=== PATIENT | male | born 1940 | race Caucasian/White ===

== ENCOUNTER → 2019-05-29 09:58 | Outpatient (CLI) | payer MEDICARE, SELFPAY ==
[2019-05-29 10:35] LABS: Hematocrit 42.2 % (41-53); Hemoglobin 14.5 g/dL (13.5-17.5); Mean Corpuscular HGB Conc 34.4 % (30-36); Mean Corpuscular Hemoglobin 35.8 PG (26-34); Mean Corpuscular Volume 103.9 fL (80-100); Platelet Count 173 X10^3/uL (150-400); Red Blood Cell Count 4.06 X10^6/uL (4.5-5.9); Red Cell Distribution Width 13.8 % (11.6-14.8); White Blood Cell Count 4.5 X10^3/uL (4.5-11.0)
[2019-05-29 11:03] LABS: BUN Creatinine Ratio 21.4 (6-22); Blood Urea Nitrogen 15 mg/dL (9-20); Calcium 9.7 mg/dL (8.4-10.2); Carbon Dioxide 31 mmol/L (22-32); Chloride 101 mmol/L (98-107); Estimated Glomerular Filt Rate > 60.0 mL/min (>60); Glucose 97 mg/dL (80-110); HEMOLYSIS < 15 (0-50); Potassium 4.7 mmol/L (3.4-5.1); Sodium 137 mmol/L (137-145)
== END ==
DX: E85.4 Organ-limited amyloidosis (principal); I43 Cardiomyopathy in diseases classified elsewhere
CPT/HCPCS: 36415; 80048; 85027

== ENCOUNTER → 2020-05-24 09:16 | Outpatient (CLI) | payer MEDICARE, SELFPAY ==
[2020-05-24 10:20] LABS: Add Manual Diff / Slide Review NO; Basophils Absolute Auto 100 /uL (0-100); Basophils Percent Auto 2.8 % (0-2); Eosinophils Absolute Auto 500 /uL (0-450); Eosinophils Percent Auto 10.2 % (2-4); Hematocrit 42.7 % (41-53); Hemoglobin 14.7 g/dL (13.5-17.5); Lymphocytes Absolute Auto 1100 /uL (1100-4500); Lymphocytes Percent Auto 20.5 % (25-40); Mean Corpuscular HGB Conc 34.5 % (30-36); Mean Corpuscular Hemoglobin 35.9 PG (26-34); Mean Corpuscular Volume 104.3 fL (80-100); Monocytes Absolute Auto 700 /uL (0-900); Monocytes Percent Auto 13.2 % (3-14); Neutrophils Absolute Auto 2700 /uL (1500-7000); Neutrophils Percent Auto 53.3 % (50-75); Platelet Count 185 X10^3/uL (150-400); Red Blood Cell Count 4.09 X10^6/uL (4.5-5.9); Red Cell Distribution Width 13.5 % (11.6-14.8); White Blood Cell Count 5.1 X10^3/uL (4.5-11.0)
[2020-05-24 10:36] LABS: HEMOLYSIS < 15 (0-50); Iron 126 ug/dL (49-181)
[2020-05-24 10:47] LABS: Percent Iron Saturation 49 % (20-50); Total Iron Binding Capacity 256 ug/dL (261-462); Transferrin 172 mg/dL (206-381)
[2020-05-24 14:07] LABS: Ferritin 160 ng/mL (18-464)
== END ==
PROVIDERS: Referring Provider Internal Medicine; Visit Provider Internal Medicine
DX: E83.119 Hemochromatosis, unspecified (principal)
CPT/HCPCS: 36415; 82728; 83540; 83550; 85025

== ENCOUNTER 2020-05-29 16:03 | Emergency (ER) | payer MEDICARE, SELFPAY ==
[2020-05-29 16:15] VITALS: BP 152/73; PULSE 72; RESP 18; TEMP 36.9; O2SAT 97; BMI 22.2
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
[2020-05-29 16:38] VITALS: PULSE 70; O2SAT 98
[2020-05-29 16:51] LABS: Add Manual Diff / Slide Review NO; Basophils Absolute Auto 200 /uL (0-100); Basophils Percent Auto 1.3 % (0-2); Eosinophils Absolute Auto 200 /uL (0-450); Eosinophils Percent Auto 1.5 % (2-4); Hematocrit 42.7 % (41-53); Hemoglobin 14.5 g/dL (13.5-17.5); Lymphocytes Absolute Auto 1000 /uL (1100-4500); Lymphocytes Percent Auto 7.9 % (25-40); Mean Corpuscular Volume 102.9 fL (80-100); Monocytes Absolute Auto 2000 /uL (0-900); Monocytes Percent Auto 15.7 % (3-14); Neutrophils Absolute Auto 9200 /uL (1500-7000); Neutrophils Percent Auto 73.6 % (50-75); Platelet Count 170 X10^3/uL (150-400); Red Blood Cell Count 4.15 X10^6/uL (4.5-5.9); Red Cell Distribution Width 13.2 % (11.6-14.8); White Blood Cell Count 12.5 X10^3/uL (4.5-11.0)
[2020-05-29 16:56] LABS: INR 1.4 (0.9-1.3); Prothrombin Time 15.9 SECONDS (10.1-12.7)
--- NOTE | 2020-05-29 16:56 | PC.NURSE ---
Reports pain in right hip front to back. Also has tenderness in RLQ. Reports history of hernia repair in that area.
[2020-05-29 17:03] VITALS: PULSE 70; O2SAT 97
[2020-05-29 17:07] LABS: Alanine Aminotransferase 19 IU/L (<50); Albumin 4.3 g/dL (3.5-5.0); Albumin Globulin Ratio 1.2 (1.0-2.8); Alkaline Phosphatase 90 U/L (38-126); Aspartate Aminotransferase 31 IU/L (17-59); BUN Creatinine Ratio 21.2 (6-22); Bilirubin Total 0.9 mg/dL (0.2-1.3); Blood Urea Nitrogen 14 mg/dL (9-20); Calcium 9.3 mg/dL (8.4-10.2); Carbon Dioxide 29 mmol/L (22-32); Chloride 101 mmol/L (98-107); Creatine Kinase 31 U/L (55-170); Estimated Glomerular Filt Rate > 60.0 mL/min (>60); Globulin 3.6 g/dL (1.7-4.1); Glucose 107 mg/dL (80-110); HEMOLYSIS < 15 (0-50); Lipase 110 U/L (23-300); Potassium 4.1 mmol/L (3.4-5.1); Sodium 135 mmol/L (137-145); Total Protein 7.9 g/dL (6.3-8.2)
[2020-05-29 17:19] LABS: Troponin I 0.046 ng/mL (0.01-0.034)
[2020-05-29 17:20] LABS: Ethanol (ETOH) < 10 mg/dL
[2020-05-29 17:23] VITALS: BP 142/66; PULSE 68; RESP 20; O2SAT 99
[2020-05-29 17:30] VITALS: BP 146/69; PULSE 76; RESP 22; O2SAT 99
[2020-05-29 18:00] VITALS: BP 139/65; PULSE 68; RESP 21; O2SAT 99
== END 2020-05-29 18:17 | disposition home or self-care (01) ==
PROVIDERS: Emergency Provider Emergency Medicine
DX: R10.31 Right lower quadrant pain (principal); S09.90XA Unspecified injury of head, initial encounter; Z79.01 Long term (current) use of anticoagulants; V89.2XXA Person injured in unspecified motor-vehicle accident, traffic, initial encounter
CPT/HCPCS: 36415; 70450; 71260; 72125; 74177; 80053; 80320; 82550; 83690; 84484; 85025; 85610; 86850; 86900; 86901; 93005; 93010; 99285; Q9967

== ENCOUNTER → 2020-06-10 11:42 | Outpatient (CLI) | payer MEDICARE, SELFPAY ==
[2020-06-10 12:16] LABS: 585 Gram Check PASS; Dizziness NO; Postdiastolic BP 72; Postsystolic BP 118; Prediastolic 75; Presystolic 146; Pulse 61; Site of phlebotomy LAC; Swelling NO; Therapeutic Phleb Comment NO COMMENT; Zero Check Sebra Scale PASS
== END ==
PROVIDERS: Referring Provider Internal Medicine; Visit Provider Internal Medicine
DX: E83.119 Hemochromatosis, unspecified (principal)
CPT/HCPCS: 99195

== ENCOUNTER → 2020-09-01 09:39 | Outpatient (CLI) | payer MEDICARE, SELFPAY ==
[2020-09-01 10:57] LABS: Add Manual Diff / Slide Review NO; Basophils Absolute Auto 200 /uL (0-100); Basophils Percent Auto 3.6 % (0-2); Eosinophils Absolute Auto 400 /uL (0-450); Eosinophils Percent Auto 6.8 % (2-4); Hematocrit 45.3 % (41-53); Hemoglobin 15.4 g/dL (13.5-17.5); Lymphocytes Absolute Auto 1300 /uL (1100-4500); Lymphocytes Percent Auto 21.3 % (25-40); Mean Corpuscular Hemoglobin 35.2 PG (26-34); Mean Corpuscular Volume 103.7 fL (80-100); Monocytes Absolute Auto 700 /uL (0-900); Monocytes Percent Auto 12.3 % (3-14); Neutrophils Absolute Auto 3300 /uL (1500-7000); Platelet Count 200 X10^3/uL (150-400); Red Blood Cell Count 4.36 X10^6/uL (4.5-5.9); Red Cell Distribution Width 13.7 % (11.6-14.8); White Blood Cell Count 5.9 X10^3/uL (4.5-11.0)
[2020-09-01 12:22] LABS: Ferritin 130 ng/mL (18-464)
[2020-09-02 14:31] LABS: HEMOLYSIS < 15 (0-50); Iron 130 ug/dL (49-181)
[2020-09-02 14:42] LABS: Percent Iron Saturation 55 % (20-50); Total Iron Binding Capacity 236 ug/dL (261-462); Transferrin 195 mg/dL (206-381)
== END ==
PROVIDERS: Referring Provider Internal Medicine; Visit Provider Internal Medicine
DX: E83.119 Hemochromatosis, unspecified (principal)
CPT/HCPCS: 36415; 82728; 83540; 83550; 85025

== ENCOUNTER → 2020-09-09 09:39 | Outpatient (CLI) | payer MEDICARE, SELFPAY ==
[2020-09-09 10:35] LABS: 585 Gram Check PASS; Dizziness NO; Postdiastolic BP 66; Postsystolic BP 114; Prediastolic 76; Presystolic 121; Pulse 62; Site of phlebotomy LAC; Swelling NO; Temperature 97.7; Therapeutic Phleb Comment NO COMMENT; Zero Check Sebra Scale PASS
== END ==
PROVIDERS: Referring Provider Internal Medicine; Visit Provider Internal Medicine
DX: E83.119 Hemochromatosis, unspecified (principal)
CPT/HCPCS: 99195

== ENCOUNTER → 2020-10-03 08:17 | Outpatient (CLI) | payer MEDICARE, SELFPAY ==
[2020-10-03 10:26] LABS: Hematocrit 41.2 % (41-53); Hemoglobin 13.9 g/dL (13.5-17.5); Mean Corpuscular HGB Conc 33.8 % (30-36); Mean Corpuscular Hemoglobin 35.4 PG (26-34); Mean Corpuscular Volume 104.6 fL (80-100); Platelet Count 179 X10^3/uL (150-400); Red Blood Cell Count 3.94 X10^6/uL (4.5-5.9); Red Cell Distribution Width 13.8 % (11.6-14.8); White Blood Cell Count 4.6 X10^3/uL (4.5-11.0)
== END ==
PROVIDERS: Referring Provider Student in an Organized Health Care Education/Training Program; Visit Provider Student in an Organized Health Care Education/Training Program
DX: E85.4 Organ-limited amyloidosis (principal); I43 Cardiomyopathy in diseases classified elsewhere
CPT/HCPCS: 36415; 85027

== ENCOUNTER → 2020-10-17 06:53 | Outpatient (CLI) | payer MEDICARE, SELFPAY ==
[2020-10-17 08:56] LABS: Add Manual Diff / Slide Review NO; Basophils Absolute Auto 100 /uL (0-100); Basophils Percent Auto 2.8 % (0-2); Eosinophils Absolute Auto 400 /uL (0-450); Eosinophils Percent Auto 8.1 % (2-4); Lymphocytes Absolute Auto 1100 /uL (1100-4500); Lymphocytes Percent Auto 24.1 % (25-40); Mean Corpuscular HGB Conc 33.3 % (30-36); Mean Corpuscular Hemoglobin 34.9 PG (26-34); Mean Corpuscular Volume 104.8 fL (80-100); Monocytes Absolute Auto 700 /uL (0-900); Monocytes Percent Auto 15.1 % (3-14); Neutrophils Absolute Auto 2200 /uL (1500-7000); Neutrophils Percent Auto 49.9 % (50-75); Platelet Count 179 X10^3/uL (150-400); Red Blood Cell Count 4.01 X10^6/uL (4.5-5.9); Red Cell Distribution Width 13.5 % (11.6-14.8); White Blood Cell Count 4.4 X10^3/uL (4.5-11.0)
[2020-10-17 09:03] LABS: Alanine Aminotransferase 14 IU/L (<50); Albumin 4.1 g/dL (3.5-5.0); Albumin Globulin Ratio 1.3 (1.0-2.8); Alkaline Phosphatase 71 U/L (38-126); Aspartate Aminotransferase 26 IU/L (17-59); BUN Creatinine Ratio 17.1 (6-22); Bilirubin Total 0.6 mg/dL (0.2-1.3); Blood Urea Nitrogen 13 mg/dL (9-20); Calcium 9.5 mg/dL (8.4-10.2); Carbon Dioxide 29 mmol/L (22-32); Chloride 104 mmol/L (98-107); Estimated Glomerular Filt Rate > 60.0 mL/min (>60); Globulin 3.1 g/dL (1.7-4.1); Glucose 96 mg/dL (80-110); HEMOLYSIS < 15 (0-50); Potassium 4.3 mmol/L (3.4-5.1); Sodium 139 mmol/L (137-145); Total Protein 7.2 g/dL (6.3-8.2)
[2020-10-17 09:11] LABS: NT-proBNP (BNP-Adult 18+) 1460 pg/mL (<450)
== END ==
PROVIDERS: Referring Provider Student in an Organized Health Care Education/Training Program; Visit Provider Student in an Organized Health Care Education/Training Program
DX: I50.32 Chronic diastolic (congestive) heart failure (principal)
CPT/HCPCS: 36415; 80053; 83880; 85025

== ENCOUNTER → 2020-12-02 09:55 | Outpatient (CLI) | payer MEDICARE, SELFPAY ==
[2020-12-02 10:23] LABS: Add Manual Diff / Slide Review NO; Basophils Absolute Auto 100 /uL (0-100); Basophils Percent Auto 1.1 % (0-2); Eosinophils Absolute Auto 300 /uL (0-450); Eosinophils Percent Auto 6.3 % (2-4); Hematocrit 40.8 % (41-53); Hemoglobin 14.1 g/dL (13.5-17.5); Lymphocytes Absolute Auto 1000 /uL (1100-4500); Lymphocytes Percent Auto 20.9 % (25-40); Mean Corpuscular HGB Conc 34.5 % (30-36); Mean Corpuscular Hemoglobin 35.8 PG (26-34); Mean Corpuscular Volume 103.8 fL (80-100); Monocytes Absolute Auto 600 /uL (0-900); Monocytes Percent Auto 12.4 % (3-14); Neutrophils Absolute Auto 2900 /uL (1500-7000); Neutrophils Percent Auto 59.3 % (50-75); Platelet Count 182 X10^3/uL (150-400); Red Blood Cell Count 3.93 X10^6/uL (4.5-5.9); Red Cell Distribution Width 14.7 % (11.6-14.8); White Blood Cell Count 4.9 X10^3/uL (4.5-11.0)
[2020-12-02 10:51] LABS: Iron 121 ug/dL (49-181)
[2020-12-02 11:00] LABS: Percent Iron Saturation 51 % (20-50); Total Iron Binding Capacity 237 ug/dL (261-462)
[2020-12-02 11:10] LABS: Ferritin 138 ng/mL (18-464)
== END ==
PROVIDERS: Referring Provider Internal Medicine; Visit Provider Internal Medicine
DX: E83.119 Hemochromatosis, unspecified (principal)
CPT/HCPCS: 36415; 82728; 83540; 83550; 85025

== ENCOUNTER → 2020-12-12 12:53 | Outpatient (CLI) | payer MEDICARE, SELFPAY ==
[2020-12-12 13:26] LABS: 585 Gram Check PASS; Dizziness NO; Postdiastolic BP 74; Postsystolic BP 124; Prediastolic 71; Presystolic 125; Pulse 65; Site of phlebotomy LAC; Swelling NO; Temperature 98.1; Therapeutic Phleb Comment NO COMMENT; Zero Check Sebra Scale PASS
== END ==
PROVIDERS: Referring Provider Internal Medicine; Visit Provider Internal Medicine
DX: E83.119 Hemochromatosis, unspecified (principal)
CPT/HCPCS: 99195

== ENCOUNTER → 2020-12-23 06:52 | Outpatient (CLI) | payer MEDICARE, SELFPAY ==
[2020-12-23 08:06] LABS: Alanine Aminotransferase 15 IU/L (<50); Albumin 4.1 g/dL (3.5-5.0); Albumin Globulin Ratio 1.4 (1.0-2.8); Alkaline Phosphatase 80 U/L (38-126); Aspartate Aminotransferase 23 IU/L (17-59); BUN Creatinine Ratio 21.1 (6-22); Bilirubin Total 0.5 mg/dL (0.2-1.3); Blood Urea Nitrogen 15 mg/dL (9-20); Calcium 9.2 mg/dL (8.4-10.2); Carbon Dioxide 31 mmol/L (22-32); Chloride 101 mmol/L (98-107); Estimated Glomerular Filt Rate > 60.0 mL/min (>60); Glucose 129 mg/dL (80-110); HEMOLYSIS < 15 (0-50); Potassium 4.4 mmol/L (3.4-5.1); Sodium 138 mmol/L (137-145); Total Protein 7.1 g/dL (6.3-8.2)
[2020-12-23 08:15] LABS: NT-proBNP (BNP-Adult 18+) 1180 pg/mL (<450)
== END ==
PROVIDERS: Referring Provider Student in an Organized Health Care Education/Training Program; Visit Provider Student in an Organized Health Care Education/Training Program
DX: E85.4 Organ-limited amyloidosis (principal); I50.32 Chronic diastolic (congestive) heart failure; I43 Cardiomyopathy in diseases classified elsewhere
CPT/HCPCS: 36415; 80053; 83880

== ENCOUNTER → 2021-04-06 06:56 | Outpatient (CLI) | payer MEDICARE, SELFPAY ==
[2021-04-06 09:31] LABS: Add Manual Diff / Slide Review NO; Basophils Absolute Auto 100 /uL (0-100); Basophils Percent Auto 2.2 % (0-2); Eosinophils Absolute Auto 400 /uL (0-450); Eosinophils Percent Auto 7.3 % (2-4); Hematocrit 42.8 % (41-53); Hemoglobin 14.7 g/dL (13.5-17.5); Lymphocytes Absolute Auto 1100 /uL (1100-4500); Lymphocytes Percent Auto 20.2 % (25-40); Mean Corpuscular HGB Conc 34.4 % (30-36); Mean Corpuscular Volume 101.8 fL (80-100); Monocytes Absolute Auto 600 /uL (0-900); Monocytes Percent Auto 11.3 % (3-14); Neutrophils Absolute Auto 3200 /uL (1500-7000); Platelet Count 187 X10^3/uL (150-400); Red Blood Cell Count 4.21 X10^6/uL (4.5-5.9); Red Cell Distribution Width 13.4 % (11.6-14.8); White Blood Cell Count 5.4 X10^3/uL (4.5-11.0)
[2021-04-06 09:52] LABS: Iron 135 ug/dL (49-181)
[2021-04-06 10:01] LABS: Percent Iron Saturation 56 % (20-50); Total Iron Binding Capacity 240 ug/dL (261-462)
[2021-04-06 10:28] LABS: Ferritin 96 ng/mL (18-464)
== END ==
PROVIDERS: Referring Provider Internal Medicine; Visit Provider Internal Medicine
DX: E83.119 Hemochromatosis, unspecified (principal)
CPT/HCPCS: 36415; 82728; 83540; 83550; 85025

== ENCOUNTER → 2021-04-14 06:50 | Outpatient (CLI) | payer MEDICARE, SELFPAY ==
[2021-04-14 08:29] LABS: Add Manual Diff / Slide Review NO; Basophils Absolute Auto 100 /uL (0-100); Basophils Percent Auto 1.5 % (0-2); Eosinophils Absolute Auto 500 /uL (0-450); Eosinophils Percent Auto 9.2 % (2-4); Hematocrit 43.5 % (41-53); Hemoglobin 14.8 g/dL (13.5-17.5); Lymphocytes Absolute Auto 1300 /uL (1100-4500); Mean Corpuscular HGB Conc 33.9 % (30-36); Mean Corpuscular Hemoglobin 34.6 PG (26-34); Mean Corpuscular Volume 102.1 fL (80-100); Monocytes Absolute Auto 800 /uL (0-900); Monocytes Percent Auto 13.9 % (3-14); Neutrophils Absolute Auto 2900 /uL (1500-7000); Neutrophils Percent Auto 51.4 % (50-75); Platelet Count 201 X10^3/uL (150-400); Red Blood Cell Count 4.26 X10^6/uL (4.5-5.9); Red Cell Distribution Width 13.9 % (11.6-14.8); White Blood Cell Count 5.6 X10^3/uL (4.5-11.0)
[2021-04-14 08:49] LABS: Iron 149 ug/dL (49-181)
[2021-04-14 09:00] LABS: Percent Iron Saturation 60 % (20-50); Total Iron Binding Capacity 247 ug/dL (261-462)
[2021-04-16 13:48] LABS: Ferritin 118 ng/mL (18-464)
== END ==
PROVIDERS: Referring Provider Internal Medicine; Visit Provider Internal Medicine
DX: E83.119 Hemochromatosis, unspecified (principal)
CPT/HCPCS: 36415; 82728; 83540; 83550; 85025

== ENCOUNTER → 2021-04-23 09:26 | Outpatient (CLI) | payer MEDICARE, SELFPAY ==
[2021-04-23 09:59] LABS: 585 Gram Check PASS; Dizziness NO; Postdiastolic BP 74; Postsystolic BP 133; Prediastolic 71; Presystolic 118; Pulse 60; Site of phlebotomy RAC; Swelling NO; Therapeutic Phleb Comment NO COMMENT; Zero Check Sebra Scale PASS
== END ==
PROVIDERS: Referring Provider Internal Medicine; Visit Provider Internal Medicine
DX: E83.119 Hemochromatosis, unspecified (principal)
CPT/HCPCS: 99195

== ENCOUNTER → 2021-07-13 15:31 | Outpatient (CLI) | payer MEDICARE, SELFPAY ==
--- NOTE | 2021-07-13 15:35 | DI.MRI.S_ITS ---
PROCEDURE: MR HEAD/BRAIN WO/W CON INDICATIONS: Transient cerebral ischemic attack, unspecified TECHNIQUE: Noncontrast axial T1 spin echo, axial T2 fast spin echo, sagittal and axial FLAIR, coronal T2 fast spin echo, axial gradient echo, axial diffusion and ADC through the brain. After the administration of contrast, axial and coronal 3D VIBE or T1 spin echo with fat saturation through the brain. COMPARISON: None. FINDINGS: Image quality: Excellent. CSF Spaces: Basal cisterns are patent. No extra-axial fluid collections. Ventricles are normal in size and shape. Brain: No midline shift. No intracranial bleeds or masses. No abnormal intracranial enhancement. The brainstem appears normal. Diffusion-weighted images demonstrate no acute infarcts. Mild atrophy and multifocal white matter chronic ischemic change present. Normal intravascular flow voids are present. Skull and face: Calvarial marrow is normal in signal. Orbits appear normal. Sinuses: Sinuses and mastoids appear clear. IMPRESSION: Mild atrophy and multifocal white matter chronic ischemic change Approved by: Frank Mayer M.D. on 07/13/2021 at 17:07
--- NOTE | 2021-07-13 15:35 | DI.MRI.S_ITS ---
PROCEDURE: MR ANGIO HEAD WO CON INDICATIONS: Transient cerebral ischemic attack, unspecified TECHNIQUE: Noncontrast axial 3-D [id number] MR angiogram, with 3-dimensional maximum intensity projection (MIP) reformats of the internal carotid arteries and posterior circulation then performed. COMPARISON: None. FINDINGS: Image quality: Excellent. Anterior circulation: Intracranial internal carotid arteries demonstrate normal size and intraluminal flow signal. The flow within the paired anterior cerebral arteries is normal and symmetric. The flow within the middle cerebral arteries is normal and symmetric. The anterior communicating artery is seen. No stenoses, occlusions, or aneurysms. Posterior circulation: Visualized portions of the vertebral arteries demonstrate normal caliber, and join to form a normal appearing basilar artery. The flow within the posterior cerebral arteries is normal and symmetric. No stenoses, occlusions, or aneurysms. IMPRESSION: Unremarkable MR angiogram of the brain without large vessel occlusion, aneurysm or vascular malformation Approved by: Frank Mayer M.D. on 07/13/2021 at 17:04
== END ==
DX: G45.9 Transient cerebral ischemic attack, unspecified; R20.2 Paresthesia of skin
CPT/HCPCS: 70544; 70553

== ENCOUNTER → 2021-09-08 06:37 | Outpatient (CLI) | payer MEDICARE, SELFPAY ==
[2021-09-08 07:08] LABS: Hematocrit 40.6 % (41-53); Hemoglobin 13.8 g/dL (13.5-17.5)
[2021-09-08 10:21] LABS: 585 Gram Check PASS; Prediastolic 76; Presystolic 142; Pulse 48; Temperature 97.9; Zero Check Sebra Scale PASS
[2021-09-08 10:22] LABS: Dizziness NO; Postdiastolic BP 67; Postsystolic BP 122; Site of phlebotomy LAC; Swelling NO; Therapeutic Phleb Comment NO COMMENT
== END ==
PROVIDERS: Referring Provider Internal Medicine; Visit Provider Internal Medicine
DX: E83.119 Hemochromatosis, unspecified (principal)
CPT/HCPCS: 36415; 85014; 85018; 99195

== ENCOUNTER → 2021-12-16 09:59 | Outpatient (CLI) | payer MEDICARE, SELFPAY ==
[2021-12-16 11:59] LABS: Hematocrit 43.4 % (41-53); Hemoglobin 15.1 g/dL (13.5-17.5); Mean Corpuscular HGB Conc 34.8 % (30-36); Mean Corpuscular Hemoglobin 36.1 PG (26-34); Mean Corpuscular Volume 103.9 fL (80-100); Platelet Count 211 X10^3/uL (150-400); Red Blood Cell Count 4.17 X10^6/uL (4.5-5.9); Red Cell Distribution Width 13.9 % (11.6-14.8); White Blood Cell Count 6.4 X10^3/uL (4.5-11.0)
[2021-12-16 12:28] LABS: Blood Urea Nitrogen 15 mg/dL (9-20); Calcium 9.3 mg/dL (8.4-10.2); Carbon Dioxide 31 mmol/L (22-32); Chloride 101 mmol/L (98-107); Estimated Glomerular Filt Rate > 60 mL/min (>60); Glucose 66 mg/dL (80-110); HEMOLYSIS < 15 (0-50); Potassium 4.6 mmol/L (3.4-5.1); Sodium 141 mmol/L (137-145)
[2021-12-16 12:58] LABS: Thyroid Stimulating Hormone 2.45 uIU/mL (0.47-4.68)
[2021-12-18 10:23] LABS: 585 Gram Check PASS; Dizziness NO; Postdiastolic BP 77; Postsystolic BP 130; Prediastolic 73; Presystolic 142; Pulse 64; Site of phlebotomy RAC; Swelling NO; Therapeutic Phleb Comment NO COMMENT; Zero Check Sebra Scale PASS
== END ==
PROVIDERS: Referring Provider Student in an Organized Health Care Education/Training Program; Visit Provider Student in an Organized Health Care Education/Training Program
DX: I48.91 Unspecified atrial fibrillation (principal)
CPT/HCPCS: 36415; 80048; 84443; 85027; 99195

== ENCOUNTER → 2022-01-23 07:44 | Outpatient (CLI) | payer MEDICARE, SELFPAY ==
[2022-01-23 08:54] LABS: Hematocrit 41.8 % (41-53); Hemoglobin 14.1 g/dL (13.5-17.5); Mean Corpuscular HGB Conc 33.7 % (30-36); Mean Corpuscular Hemoglobin 35.8 PG (26-34); Mean Corpuscular Volume 106.1 fL (80-100); Platelet Count 213 X10^3/uL (150-400); Red Blood Cell Count 3.94 X10^6/uL (4.5-5.9); Red Cell Distribution Width 14.5 % (11.6-14.8); White Blood Cell Count 5.2 X10^3/uL (4.5-11.0)
[2022-01-23 09:08] LABS: BUN Creatinine Ratio 17.7 (6-22); Blood Urea Nitrogen 17 mg/dL (9-20); Calcium 9.1 mg/dL (8.4-10.2); Carbon Dioxide 28 mmol/L (22-32); Chloride 101 mmol/L (98-107); Estimated Glomerular Filt Rate > 60 mL/min (>60); Glucose 88 mg/dL (80-110); HEMOLYSIS < 15 (0-50); Potassium 4.3 mmol/L (3.4-5.1); Sodium 137 mmol/L (137-145)
[2022-01-23 09:39] LABS: Thyroid Stimulating Hormone 2.25 uIU/mL (0.47-4.68)
== END ==
PROVIDERS: Referring Provider Student in an Organized Health Care Education/Training Program; Visit Provider Student in an Organized Health Care Education/Training Program
DX: I50.32 Chronic diastolic (congestive) heart failure (principal); I48.91 Unspecified atrial fibrillation; E85.4 Organ-limited amyloidosis
CPT/HCPCS: 36415; 80048; 84443; 85027

== ENCOUNTER → 2022-03-18 15:14 | Outpatient (CLI) | payer MEDICARE, SELFPAY ==
[2022-03-18 18:06] LABS: Add Manual Diff / Slide Review NO; Basophils Absolute Auto 100 /uL (0-100); Basophils Percent Auto 2.2 % (0-2); Eosinophils Absolute Auto 300 /uL (0-450); Eosinophils Percent Auto 4.6 % (2-4); Hematocrit 43.5 % (41-53); Lymphocytes Absolute Auto 1400 /uL (1100-4500); Lymphocytes Percent Auto 21.7 % (25-40); Mean Corpuscular HGB Conc 34.6 % (30-36); Mean Corpuscular Hemoglobin 36.1 PG (26-34); Mean Corpuscular Volume 104.6 fL (80-100); Monocytes Absolute Auto 700 /uL (0-900); Monocytes Percent Auto 11.1 % (3-14); Neutrophils Absolute Auto 3800 /uL (1500-7000); Neutrophils Percent Auto 60.4 % (50-75); Platelet Count 222 X10^3/uL (150-400); Red Blood Cell Count 4.16 X10^6/uL (4.5-5.9); Red Cell Distribution Width 13.9 % (11.6-14.8); White Blood Cell Count 6.3 X10^3/uL (4.5-11.0)
[2022-03-18 18:17] LABS: Blood Urea Nitrogen 18 mg/dL (9-20); Calcium 8.9 mg/dL (8.4-10.2); Carbon Dioxide 30 mmol/L (22-32); Chloride 100 mmol/L (98-107); Estimated Glomerular Filt Rate > 60 mL/min (>60); Glucose 64 mg/dL (80-110); HEMOLYSIS < 15 (0-50); Sodium 139 mmol/L (137-145)
[2022-03-18 18:47] LABS: Thyroid Stimulating Hormone 1.97 uIU/mL (0.47-4.68)
== END ==
PROVIDERS: Referring Provider Student in an Organized Health Care Education/Training Program; Visit Provider Student in an Organized Health Care Education/Training Program
DX: I50.32 Chronic diastolic (congestive) heart failure (principal); E85.4 Organ-limited amyloidosis; I48.91 Unspecified atrial fibrillation; I43 Cardiomyopathy in diseases classified elsewhere
CPT/HCPCS: 36415; 80048; 84443; 85025

== ENCOUNTER → 2022-04-02 09:47 | Outpatient (CLI) | payer MEDICARE, SELFPAY ==
[2022-04-02 10:53] LABS: Hematocrit 41.8 % (41-53); Hemoglobin 14.5 g/dL (13.5-17.5)
[2022-04-02 12:59] LABS: 585 Gram Check PASS; Dizziness NO; Postdiastolic BP 78; Postsystolic BP 125; Prediastolic 78; Presystolic 156; Pulse 74; Site of phlebotomy RAC; Swelling NO; Temperature 95.6; Therapeutic Phleb Comment NO COMMENT; Zero Check Sebra Scale PASS
== END ==
PROVIDERS: Referring Provider Internal Medicine; Visit Provider Internal Medicine
DX: E83.119 Hemochromatosis, unspecified (principal)
CPT/HCPCS: 85014; 85018; 99195

== ENCOUNTER → 2022-07-06 09:07 | Outpatient (CLI) | payer MEDICARE, SELFPAY ==
[2022-07-06 09:49] LABS: Add Manual Diff / Slide Review NO; Basophils Absolute Auto 0 /uL (0-100); Basophils Percent Auto 0.4 % (0-2); Eosinophils Absolute Auto 300 /uL (0-450); Eosinophils Percent Auto 4.3 % (2-4); Hematocrit 42.4 % (41-53); Hemoglobin 14.8 g/dL (13.5-17.5); Lymphocytes Absolute Auto 900 /uL (1100-4500); Lymphocytes Percent Auto 14.6 % (25-40); Mean Corpuscular HGB Conc 34.9 % (30-36); Mean Corpuscular Hemoglobin 36.6 PG (26-34); Mean Corpuscular Volume 104.7 fL (80-100); Monocytes Absolute Auto 800 /uL (0-900); Monocytes Percent Auto 12.9 % (3-14); Neutrophils Absolute Auto 4000 /uL (1500-7000); Neutrophils Percent Auto 67.8 % (50-75); Platelet Count 209 X10^3/uL (150-400); Red Blood Cell Count 4.05 X10^6/uL (4.5-5.9); Red Cell Distribution Width 14.4 % (11.6-14.8); White Blood Cell Count 5.9 X10^3/uL (4.5-11.0)
[2022-07-06 10:31] LABS: 585 Gram Check PASS; Therapeutic Phleb Consent Chec Consent signed @ reg; Zero Check Sebra Scale PASS
[2022-07-06 10:32] LABS: Patient Weight <110 lb NO; Prediastolic 80; Presystolic 141; Pulse 64; Temperature 97.8; Therapeutic Phleb Start Time 1000
[2022-07-06 10:33] LABS: Amount Collected in g 585; Amount Collected mL calc 508 mL; Amount to Collect in grams 585 g; Amount to Collect in mL 600 mL; Dizziness NO; Postdiastolic BP 73; Postsystolic BP 121; Site of phlebotomy Right antecubital; Swelling NO; Therapeutic Phleb Comment NO COMMENT; Therapeutic Phleb Stop Time 1030
[2022-07-06 10:34] LABS: Iron 133 ug/dL (49-181)
[2022-07-06 10:35] LABS: BUN Creatinine Ratio 22.2 (6-22); Blood Urea Nitrogen 22 mg/dL (9-20); Carbon Dioxide 31 mmol/L (22-32); Chloride 101 mmol/L (98-107); Estimated Glomerular Filt Rate > 60 mL/min (>60); Glucose 99 mg/dL (80-110); Sodium 138 mmol/L (137-145)
[2022-07-06 10:44] LABS: Percent Iron Saturation 49 % (20-50); Total Iron Binding Capacity 273 ug/dL (261-462)
[2022-07-06 11:12] LABS: Ferritin 37 ng/mL (18-464); HEMOLYSIS < 15 (0-50)
== END ==
PROVIDERS: PCP Internal Medicine; Referring Provider Internal Medicine; Visit Provider Internal Medicine
DX: E83.119 Hemochromatosis, unspecified (principal); I50.32 Chronic diastolic (congestive) heart failure; E85.4 Organ-limited amyloidosis; I48.91 Unspecified atrial fibrillation
CPT/HCPCS: 36415; 80048; 82728; 83540; 83550; 84443; 85025; 99195

== ENCOUNTER → 2022-09-20 09:24 | Outpatient (CLI) | payer MEDICARE, SELFPAY ==
[2022-09-20 10:24] LABS: Add Manual Diff / Slide Review NO; Basophils Absolute Auto 100 /uL (0-100); Basophils Percent Auto 1.9 % (0-2); Eosinophils Absolute Auto 200 /uL (0-450); Eosinophils Percent Auto 3.5 % (2-4); Hematocrit 44.8 % (41-53); Hemoglobin 15.4 g/dL (13.5-17.5); Lymphocytes Absolute Auto 1100 /uL (1100-4500); Lymphocytes Percent Auto 15.5 % (25-40); Mean Corpuscular HGB Conc 34.4 % (30-36); Mean Corpuscular Hemoglobin 35.5 PG (26-34); Monocytes Absolute Auto 800 /uL (0-900); Monocytes Percent Auto 10.9 % (3-14); Neutrophils Absolute Auto 4700 /uL (1500-7000); Neutrophils Percent Auto 68.2 % (50-75); Platelet Count 204 X10^3/uL (150-400); Red Blood Cell Count 4.35 X10^6/uL (4.5-5.9); White Blood Cell Count 6.9 X10^3/uL (4.5-11.0)
[2022-09-20 10:51] LABS: BUN Creatinine Ratio 20.6 (6-22); Blood Urea Nitrogen 20 mg/dL (9-20); Carbon Dioxide 32 mmol/L (22-32); Chloride 98 mmol/L (98-107); Estimated Glomerular Filt Rate > 60 mL/min (>60); Glucose 95 mg/dL (80-110); HEMOLYSIS < 15 (0-50); Potassium 3.7 mmol/L (3.4-5.1); Sodium 138 mmol/L (137-145)
== END ==
PROVIDERS: PCP Internal Medicine; Referring Provider Student in an Organized Health Care Education/Training Program; Visit Provider Student in an Organized Health Care Education/Training Program
DX: I50.32 Chronic diastolic (congestive) heart failure (principal); I48.91 Unspecified atrial fibrillation; E85.4 Organ-limited amyloidosis; I43 Cardiomyopathy in diseases classified elsewhere
CPT/HCPCS: 36415; 80048; 84443; 85025

== ENCOUNTER 2022-10-19 14:16 | Emergency (ER) | payer MEDICARE, SELFPAY ==
[2022-10-19 14:21] VITALS: BP 148/75; PULSE 82; RESP 14; TEMP 36.6; O2SAT 99; BMI 22.3
[2022-10-19 15:08] LABS: Strep Grp A by PCR Rapid Negative (Negative)
--- NOTE | 2022-10-19 15:11 | ED.URI ---
HPI - URI/Sore Throat <Aria Johnson PA-C - Last Filed: 10/19/22 15:26> General Chief Complaint: Upper Respiratory Symptoms Stated Complaint: sore throat T-2 Time Seen by Provider: 10/19/22 14:47 Source: patient Mode of arrival: Ambulatory History of Present Illness HPI Narrative: 82-year-old male with a history of amyloid, Raynaud's presents with concern for sore throat for 2 days. He states the sore throat came on fairly gradually and is worse today than it was yesterday but has not really worsened today throughout the day. He is noticed that his voice is a bit scratchy and he states every once in a while I got a sore throat but it usually goes away quickly?. He came in today because he is had persistent symptoms and it is worse today compared to yesterday. He states that the discomfort is mostly on the right side of his throat and he feels it more with swallowing he has been able to drink and eat okay but states that sometimes it is irritating with swallowing. He has not tried taking any Tylenol or ibuprofen, states he prefers to avoid taking medications except for his blood thinner and his amyloid medication. He denies any other symptoms including fevers, chills, nausea, vomiting, neck pain, headache, rhinorrhea, ear pain or any other symptoms. He states he has an appointment next week to have the cerumen removed from his ears bilaterally as he gets this done twice a year due to impaction. 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 He had his tonsils removed when he was 3. Related Data Home Medications Medication Instructions Recorded Confirmed apixaban 5 mg tablet (Eliquis) 5 mg PO BID 05/29/20 05/29/20 tafamidis 61 mg capsule (Vyndamax) 61 mg PO DAILY 05/29/20 05/29/20 Previous Rx's Medication Instructions Recorded cyclobenzaprine 10 mg tablet 10 mg PO TID PRN muscle spasm #14 05/29/20 tabs Allergies Allergy/AdvReac Type Severity Reaction Status Date / Time No Known Drug Allergies Allergy Verified 10/19/22 14:24 Review of Systems <Aria Johnson PA-C - Last Filed: 10/19/22 15:26> Review of Systems Narrative: See HPI Patient History <Aria Johnson PA-C - Last Filed: 10/19/22 15:26> Medical History Amyloidosis Social History Smoking Status: Never smoker Smoking Status: Never smoker alcohol intake frequency: 0-2 drinks per day Substance Use Type: does not use Exam <Aria Johnson PA-C - Last Filed: 10/19/22 15:26> Narrative Exam Narrative: GENERAL: [82] year old patient appears stated age. Well-developed patient, in mild distress, appears younger than stated age. HEAD: Atraumatic. Normocephalic. EYES: Pupils equal round and reactive. Extraocular motions intact. No scleral icterus. No injection or drainage. ENT: Nose without bleeding, purulent drainage. Throat with very mild erythema, uvula is midline, no swelling noted, tonsils are surgically absent, no exudate noted. Airway patent. No lymphadenopathy noted NECK: Trachea midline. Non tender, no thyroid tenderness, no lymphadenopathy. CARDIOVASCULAR: Regular rate and rhythm without murmurs, gallops, or rubs. RESPIRATORY: Clear to auscultation. Breath sounds equal bilaterally. No wheezes, rales, or rhonchi. EXTREMITIES: No edema or joint tenderness. NEURO: AOx3. SKIN: Bilateral nail beds of the hands are slightly bluish purplish pale but have less than 2nd capillary refill with compression cap refill test. No rash or erythema of visible areas Initial Vital Signs Initial Vital Signs: Vital Signs Temperature 97.9 F 10/19/22 14:21 Pulse Rate 82 10/19/22 14:21 Respiratory Rate 14 10/19/22 14:21 Blood Pressure 148/75 H 10/19/22 14:21 Pulse Oximetry 99 10/19/22 14:21 Oxygen Delivery Method Room Air 10/19/22 14:21 <Duc Curiel MD - Last Filed: 10/20/22 08:31> Initial Vital Signs Initial Vital Signs: Vital Signs Temperature 97.9 F 10/19/22 14:21 Pulse Rate 82 10/19/22 14:21 Respiratory Rate 14 10/19/22 14:21 Blood Pressure 148/75 H 10/19/22 14:21 Pulse Oximetry 99 10/19/22 14:21 Oxygen Delivery Method Room Air 10/19/22 14:21 Course <Aria Johnson PA-C - Last Filed: 10/19/22 15:26> Orders Ordered: Discontinued Medications Acetaminophen (Acetaminophen 325 Mg Tablet) 650 mg PO NOW ONE Stop: 10/19/22 15:12 Last Admin: 10/19/22 15:28 Dose: 650 mg Documented By: AMV Vital Signs Vital signs: Vital Signs - 8 hr 10/19/22 14:21 Temperature 97.9 F Pulse Rate 82 Respiratory Rate 14 Blood Pressure 148/75 H Pulse Oximetry 99 Oxygen Delivery Method Room Air <Duc Curiel MD - Last Filed: 10/20/22 08:31> Orders Ordered: Discontinued Medications Acetaminophen (Acetaminophen 325 Mg Tablet) 650 mg PO NOW ONE Stop: 10/19/22 15:12 Last Admin: 10/19/22 15:28 Dose: 650 mg Documented By: AMV Vital Signs Vital signs: Vital Signs - 8 hr 10/19/22 14:21 Temperature 97.9 F Pulse Rate 82 Respiratory Rate 14 Blood Pressure 148/75 H Pulse Oximetry 99 Oxygen Delivery Method Room Air MDM - URI/Sore Throat <Aria Johnson PA-C - Last Filed: 10/19/22 15:26> Differential Diagnosis Differential diagnosis: Likely upper respiratory infection, viral infection and pharyngitis Medical Records Attestation: I reviewed the patient's medical records. Lab Data Attestation: I reviewed the patient's lab results. Labs: Lab Results 10/19/22 Range/Units 14:25 Group A Strep (PCR) Negative (Negative) MDM Narrative Medical decision making narrative: This is an 82-year-old male with history of amyloidosis, on tafamidis and apixaban, also history of Raynaud's who presents with concern for sore throat for 2 days primarily on the right. Exam today is not suggestive of a bacterial process, there is no evidence of abscess, patient has had no other concerning symptoms, he is noted to have pale purplish blue nail beds today but endorses that this is chronic intermittent for him. He is not had chest pain neck pain shortness of breath or other some symptoms suggesting cardiac or other process that would require further evaluation or investigation today. Rapid strep returns negative, throat culture sent for further evaluation. Discussed obtaining viral testing today however the patient does not feel strongly about this and I do not feel it will likely change plan of care for him. Did discuss possibly trying warm saltwater gargles however patient has tried this and does not do well with this ever since drinking sea water as a child; we also discussed possibly trying a cough medicine or something to help with numbing of the throat but he declines this as well, he is open to trying acetaminophen and does receive 1 dose of this today in the emergency department. He will monitor for new or worsening symptoms and make sure to seek re-evaluation if these arise. Otherwise he will follow up with his primary care provider. Return precautions provided, follow-up plan discussed, all questions answered. <Duc Curiel MD - Last Filed: 10/20/22 08:31> Lab Data Labs: Lab Results 10/19/22 Range/Units 14:25 Group A Strep (PCR) Negative (Negative) Discharge Plan Departure Patient Disposition: Home Clinical Impression: Pharyngitis Activity Restrictions/Additional Instructions: *You have been diagnosed with [pharyngitis, likely viral] *What to do: *Please continue to take your regular medications as directed. [ ] New medication prescriptions sent to your pharmacy: [ ] [ ] New medication written as a paper prescription [ X] No new medications given *Please follow up with your primary care provider in 2-3 days, call for an appointment. Let them know you were seen in the Emergency Department and that we ask that you be seen in follow up. We will electronically transmit a record of today's note if your PCP is in our system. Your exam today was not suggestive of a bacterial process, it is possible that you have a viral illness causing your sore throat symptoms, we did not test for viruses today but you did have a negative strep test, we did send a throat culture for further evaluation. We did provide a dose of Tylenol today in the emergency department, I did confirm is perfectly safe to take this with your other medications, and I do recommend you try this for symptomatic relief of your sore throat over the next few days it is important to monitor for new or worsening symptoms including increasing difficulty with swallowing, increasing sore throat/pain, sensation of swelling in your throat or fevers, chills or any other symptoms of concern if these arise please do not hesitate to be re-evaluated. I do recommend he follow up with your primary care provider especially if you are not having complete resolution of your symptoms in a reasonable timeframe (3-5 days). *If you do not have a primary care provider please contact the [facility] Resource line at [phone]. They will ask some questions about your medical history and help get you set up with a doctor in the community. *Return to Emergency Department if you should have any new, worsening or concerning symptoms, such as [fever greater than 101 F, shaking chills, worsening pain, persistent vomiting or other bothersome symptoms] Prescriptions: No Action Eliquis 5 mg Tablet 5 mg PO BID Vyndamax 61 mg Capsule 61 mg PO DAILY cyclobenzaprine 10 mg tablet 10 mg PO TID PRN (Reason: muscle spasm) Qty: 14 0RF Referrals: Dasha Lyman MD [Primary Care Provider] - Stand Alone Forms: Patient Portal/API <Duc Curiel MD - Last Filed: 10/20/22 08:31> [facility]: I was immediately available in the department for consultation. ?This documentation has been reviewed and I agree with assessment and plan. Supervised by Duc Curiel MD
[2022-10-19] MEDS: ACETAMINOPHEN 325 MG TABLET 650 MG PO (15:28)
== END 2022-10-19 15:30 | disposition home or self-care (01) ==
PROVIDERS: Emergency Medicine; Emergency Provider Student in an Organized Health Care Education/Training Program; PCP Internal Medicine
DX: J02.9 Acute pharyngitis, unspecified (principal); Z79.01 Long term (current) use of anticoagulants
CPT/HCPCS: 87070; 87651; 99282; 99283

== ENCOUNTER → 2023-03-17 10:25 | Outpatient (CLI) | payer MEDICARE, SELFPAY ==
[2023-03-17 11:22] LABS: Add Manual Diff / Slide Review NO; Basophils Absolute Auto 0 /uL (0-100); Basophils Percent Auto 0.5 % (0-2); Eosinophils Absolute Auto 200 /uL (0-450); Eosinophils Percent Auto 3.3 % (2-4); Hematocrit 46.7 % (41-53); Hemoglobin 16.1 g/dL (13.5-17.5); Lymphocytes Absolute Auto 1100 /uL (1100-4500); Lymphocytes Percent Auto 17.7 % (25-40); Mean Corpuscular HGB Conc 34.5 % (30-36); Mean Corpuscular Hemoglobin 35.8 PG (26-34); Mean Corpuscular Volume 103.7 fL (80-100); Monocytes Absolute Auto 700 /uL (0-900); Monocytes Percent Auto 11.8 % (3-14); Neutrophils Absolute Auto 4200 /uL (1500-7000); Neutrophils Percent Auto 66.7 % (50-75); Platelet Count 207 X10^3/uL (150-400); White Blood Cell Count 6.3 X10^3/uL (4.5-11.0)
[2023-03-17 11:55] LABS: 585 Gram Check PASS; Patient Weight <110 lb NO; Therapeutic Phleb Consent Chec Consent signed @ reg; Zero Check Sebra Scale PASS
[2023-03-17 11:56] LABS: Amount Collected in g 585 g; Amount Collected mL calc 508 mL; Postdiastolic BP 69 mmHg; Postsystolic BP 116 mmHg; Prediastolic 73 mmHg; Presystolic 116 mmHg; Pulse 77 bpm; Site of phlebotomy Left antecubital; Temperature 98.1; Therapeutic Phleb Start Time 1130; Therapeutic Phleb Stop Time 1150
[2023-03-17 13:22] LABS: Iron 175 ug/dL (49-181)
[2023-03-17 13:23] LABS: Alanine Aminotransferase 18 IU/L (<50); Albumin 4.4 g/dL (3.5-5.0); Albumin Globulin Ratio 1.2 (1.0-2.8); Alkaline Phosphatase 80 U/L (38-126); Aspartate Aminotransferase 26 IU/L (17-59); BUN Creatinine Ratio 27.5 (6-22); Bilirubin Total 0.7 mg/dL (0.2-1.3); Blood Urea Nitrogen 25 mg/dL (9-20); Calcium 9.7 mg/dL (8.4-10.2); Carbon Dioxide 30 mmol/L (22-32); Chloride 100 mmol/L (98-107); Estimated Glomerular Filt Rate > 60 mL/min (>60); Globulin 3.8 g/dL (1.7-4.1); Glucose 69 mg/dL (80-110); HEMOLYSIS < 15 (0-50); Potassium 4.1 mmol/L (3.4-5.1); Sodium 138 mmol/L (137-145); Total Protein 8.2 g/dL (6.3-8.2)
[2023-03-17 13:31] LABS: Percent Iron Saturation 66 % (20-50); Total Iron Binding Capacity 265 ug/dL (261-462)
[2023-03-17 13:57] LABS: Ferritin 30 ng/mL (18-464)
== END ==
PROVIDERS: PCP Internal Medicine; Referring Provider Student in an Organized Health Care Education/Training Program; Visit Provider Student in an Organized Health Care Education/Training Program
DX: E85.4 Organ-limited amyloidosis (principal); I43 Cardiomyopathy in diseases classified elsewhere; I50.32 Chronic diastolic (congestive) heart failure
CPT/HCPCS: 80053; 82728; 83540; 83550; 85025; 99195

== ENCOUNTER → 2023-04-08 10:31 | Outpatient (CLI) | payer MEDICARE, SELFPAY ==
[2023-04-08 11:33] LABS: BUN Creatinine Ratio 24.1 (6-22); Blood Urea Nitrogen 19 mg/dL (9-20); Calcium 9.5 mg/dL (8.4-10.2); Carbon Dioxide 30 mmol/L (22-32); Chloride 100 mmol/L (98-107); Estimated Glomerular Filt Rate > 60 mL/min (>60); Glucose 92 mg/dL (80-110); HEMOLYSIS < 15 (0-50); Potassium 4.3 mmol/L (3.4-5.1); Sodium 136 mmol/L (137-145)
[2023-04-08 11:38] LABS: NT-proBNP (BNP-Adult 18+) 953 pg/mL (<450)
== END ==
LOC: LAB 10:34
PROVIDERS: PCP Internal Medicine; Referring Provider Student in an Organized Health Care Education/Training Program; Visit Provider Student in an Organized Health Care Education/Training Program
DX: I50.32 Chronic diastolic (congestive) heart failure (principal); I43 Cardiomyopathy in diseases classified elsewhere; E85.4 Organ-limited amyloidosis
CPT/HCPCS: 36415; 80048; 83880

== ENCOUNTER → 2023-11-10 13:14 | Outpatient (CLI) | payer MEDICARE, SELFPAY ==
--- NOTE | 2023-11-10 13:34 | EKG_ITS ---
[facility] [address] [place] [address] Test Date: 2023-11-10 Pat Name: Yony Bernstein Department: Room: Gender: Male Manager Reading: : 1940 Requested By: Order Number: [id number] Reading MD: Thomas Del Real Measurements Intervals [place] Rate: 66 P: CT: QRS: -29 QRSD: 94 T: 199 QT: 420 QTc: 440 Interpretive Statements Atrial flutter with variable AV block Septal infarct , age undetermined Inferior infarct , age undetermined ST & T wave abnormality, consider lateral ischemia Electronically Signed On 11-14-2023 18:06:28 PDT by Thomas Del Real
== END ==
LOC: RESP 13:18
PROVIDERS: PCP Internal Medicine; Referring Provider Student in an Organized Health Care Education/Training Program; Visit Provider Student in an Organized Health Care Education/Training Program
DX: E85.4 Organ-limited amyloidosis (principal); I48.91 Unspecified atrial fibrillation
CPT/HCPCS: 93005

== ENCOUNTER 2023-11-30 09:43 | Emergency (ER) | payer MEDICARE, SELFPAY ==
[2023-11-30] VITALS (8 sets, daily range): BP systolic 139–172; BP diastolic 74–89; PULSE 73–98; RESP 18–24; TEMP 37; O2SAT 97–100; BMI 22.4
--- NOTE | 2023-11-30 09:54 | EKG_ITS ---
[facility] [id number] [place] [id number] Test Date: 2023-11-30 Pat Name: Yony Bernstein Department: Room: Gender: Male Title Checker: yasmin : 1940 Requested By: Order Number: [id number] Reading MD: Thomas Del Real Measurements Intervals [place] Rate: 88 P: [place]: QRS: -22 QRSD: 96 T: 155 QT: 384 QTc: 464 Interpretive Statements ATRIAL FLUTTER Inferior infarct , age undetermined ST & T wave abnormality, consider lateral ischemia Electronically Signed On 11-30-2023 11:01:47 PDT by Thomas Del Real
--- NOTE | 2023-11-30 09:56 | DI.RAD.S_ITS ---
PROCEDURE: XR CHEST 1V INDICATIONS: chest pain TECHNIQUE: One view of the chest was acquired. COMPARISON: None. FINDINGS: Mildly elevated/eventrated right hemidiaphragm. Mild bibasilar subsegmental atelectasis some of which commonly related to expiratory result. Mild calcifications of the aortic arch. Remote fracture of the right clavicle mid diaphysis with 1 bone width offset of the fracture fragments and presumed nonunion with some callus formation. Moderate degenerate changes of the thoracic spine and shoulders. No pneumothorax, no pleural effusion, no focal consolidation. Surgical changes and devices: None. Mediastinum: Mediastinal contours appear normal. Heart size is normal for portable AP view. IMPRESSION: Mildly elevated/eventrated right hemidiaphragm. Mild bibasilar subsegmental atelectasis. Mild calcifications of the aortic arch. Remote fracture of the right clavicle. Dictated by: Evans Oneil M.D. on 11/30/2023 at 11:10 Approved by: Evans Oneil M.D. on 11/30/2023 at 11:13
--- NOTE | 2023-11-30 10:02 | ED_ITS ---
HPI - Chest Pain General Chief Complaint: Chest Pain Stated Complaint: Thinks he had a Heart attack Time Seen by Provider: 11/30/23 09:49 Source: patient Mode of arrival: Ambulatory Limitations: no limitations History of Present Illness HPI narrative: Patient here with a friend. Has resolved central chest pressure discomfort that lasted about 5 minutes. This occurred about 1 hour ago at 9:00 a.m.. He did have diaphoresis and nausea. Patient did have event in the past week/2 weeks, he had a near syncopal episode in the bathroom. He did have EKG done November 10, 2023. Today's EKG is similar findings. Patient has history atrial fibrillation and is on Eliquis. Denies any recent exertional chest pain or dyspnea. Patient never had a heart attack in the past. Patient is symptom-free at this time. He does have history of amyloidosis. 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 Related Data Home Medications Medication Instructions Recorded Confirmed apixaban 5 mg tablet (Eliquis) 5 mg PO BID 05/29/20 05/29/20 tafamidis 61 mg capsule (Vyndamax) 61 mg PO DAILY 05/29/20 05/29/20 Previous Rx's Medication Instructions Recorded cyclobenzaprine 10 mg tablet 10 mg PO TID PRN muscle spasm #14 05/29/20 tabs Allergies Allergy/AdvReac Type Severity Reaction Status Date / Time No Known Drug Allergies Allergy Verified 10/19/22 14:24 Review of Systems Review of Systems Narrative: GENERAL: negative chills, fatigue, malaise, fever, positive sweats. HEENT: negative sinus pain, ear pain, sore throat RESPIRATORY: negative dyspnea, cough CARDIOVASCULAR: Positive chest pain, negative palpitations GASTROINTESTINAL: Positive nausea, negative vomiting, abdominal pain : negative dysuria, frequency, hematuria MUSCULOSKELETAL: negative muscle or bony pain SKIN: negative rash, skin lesions NEUROLOGIC: negative weakness, numbness ROS Unobtainable: All systems reviewed & are unremarkable except as noted in HPI and below Patient History Medical History Amyloidosis Social History Smoking Status: Never smoker Smoking Status: Never smoker alcohol intake frequency: 0-2 drinks per day Substance Use Type: does not use Exam Narrative Exam Narrative: GENERAL: in no distress, not toxic not dyspneic HEAD: Normocephalic. EYES: Pupils equal round ENT: Mucous membranes moist. NECK: Trachea midline. CARDIOVASCULAR: Irregular irregular RESPIRATORY: Clear to auscultation. Breath sounds equal bilaterally. No wheezes, rales, or rhonchi. GASTROINTESTINAL: Abdomen soft, non-tender EXTREMITIES: No gross deformities. BACK: No flank tenderness. NEURO: AOx4. SKIN: Warm and dry PSYCH: Not anxious, is cooperative Initial Vital Signs Initial Vital Signs: Vital Signs Pulse Rate 98 H 11/30/23 09:49 Respiratory Rate 20 11/30/23 09:49 Pulse Oximetry 98 11/30/23 09:49 Course Orders Ordered: ED Orders 11/30/23 09:55 Complete Blood Count AUTO DIFF Stat Comprehensive Metabolic Panel Stat Lipase Stat Magnesium Stat NT-proBNP (BNP-Adult 18+) Stat PTT Partial Thromboplastin Adam Stat Prothrombin Time INR Stat Troponin & CK Cardiac Panel Stat 11/30/23 09:56 XR chest 1V Stat EKG-12 Lead Stat Vital Signs Vital signs: Vital Signs - 8 hr 11/30/23 09:54 Temperature 98.6 F Pulse Rate 88 Respiratory Rate 20 Blood Pressure 172/84 H Pulse Oximetry 100 Oxygen Delivery Method Room Air MDM - Chest Pain Lab Data 11/30/23 09:55 11/30/23 09:55 Labs: Lab Results 11/30/23 Range/Units 09:55 WBC 7.3 (4.5-11.0) X10^3/uL RBC 4.87 (4.5-5.9) X10^6/uL Hgb 17.2 (13.5-17.5) g/dL Hct 49.4 (41-53) % MCV 101.6 H (80-100) fL MCH 35.3 H (26-34) PG MCHC 34.7 (30-36) % RDW 14.2 (11.6-14.8) % Plt Count 198 (150-400) X10^3/uL Neut % (Auto) 64.0 (50-75) % Lymph % (Auto) 18.3 L (25-40) % [place] % (Auto) 12.2 (3-14) % Eos % (Auto) 4.6 H (2-4) % Baso % (Auto) 0.9 (0-2) % Neut # (Auto) 4700 (6688-8032) /uL Lymph # (Auto) 1300 (1317-3741) /uL [place] # (Auto) 900 (0-900) /uL Eos # (Auto) 300 (0-450) /uL Baso # (Auto) 100 (0-100) /uL PT 14.4 H (9.4-12.5) SECONDS INR 1.3 (0.9-1.3) APTT 39 H (25.1-36.5) SECONDS Sodium 136 L (137-145) mmol/L Potassium 3.8 (3.4-5.1) mmol/L Chloride 101 (98-107) mmol/L Carbon Dioxide 28 (22-32) mmol/L BUN 19 (9-20) mg/dL Creatinine 0.90 (0.66-1.25) mg/dL Estimated GFR > 60 (>60) mL/min BUN/Creatinine Ratio 21.1 (6-22) Glucose 103 (80-110) mg/dL Calcium 9.4 (8.4-10.2) mg/dL Magnesium 2.2 (1.6-2.3) mg/dL Total Bilirubin 0.9 (0.2-1.3) mg/dL AST 28 (17-59) IU/L ALT 16 (<50) IU/L Alkaline Phosphatase 86 (38-126) U/L Total Creatine Kinase 42 L (55-170) U/L Troponin I 0.016 (0.01-0.034) ng/mL NT-Pro-B Natriuret Pep 1100 H (<450) pg/mL Total Protein 8.4 H (6.3-8.2) g/dL Albumin 4.5 (3.5-5.0) g/dL Globulin 3.9 (1.7-4.1) g/dL Albumin/Globulin Ratio 1.2 (1.0-2.8) Lipase 126 (23-300) U/L Imaging Data Chest x-ray: Radiologist's Impression: [address] [address] XRay Report Signed Patient: Yony Bernstein MR#: [id number] : 1940 Acct:[id number] Age/Sex: 83 / M Date of Service: 11/30/23 Loc: ED Accession Number: [id number] Procedure: XR chest 1V Ordering Provider: Duc Curiel MD PROCEDURE: XR CHEST 1V INDICATIONS: chest pain TECHNIQUE: One view of the chest was acquired. COMPARISON: None. FINDINGS: Mildly elevated/eventrated right hemidiaphragm. Mild bibasilar subsegmental atelectasis some of which commonly related to expiratory result. Mild calcifications of the aortic arch. Remote fracture of the right clavicle mid diaphysis with 1 bone width offset of the fracture fragments and presumed nonunion with some callus formation. Moderate degenerate changes of the thoracic spine and shoulders. No pneumothorax, no pleural effusion, no focal consolidation. Surgical changes and devices: None. Mediastinum: Mediastinal contours appear normal. Heart size is normal for portable AP view. IMPRESSION: Mildly elevated/eventrated right hemidiaphragm. Mild bibasilar subsegmental atelectasis. Mild calcifications of the aortic arch. Remote fracture of the right clavicle. Dictated by: Evans Oneil M.D. on 11/30/2023 at 11:10 Approved by: Evans Oneil M.D. on 11/30/2023 at 11:13 [facility] Narrative Medical decision making narrative: Patient here with a friend. Has resolved central chest pressure discomfort that lasted about 5 minutes. This occurred about 1 hour ago at 9:00 a.m.. He did have diaphoresis and nausea. Patient did have event in the past week/2 weeks, he had a near syncopal episode in the bathroom. He did have EKG done November 10, 2023. Today's EKG is similar findings. Patient has history atrial fibrillation and is on Eliquis. Denies any recent exertional chest pain or dyspnea. Patient never had a heart attack in the past. Patient is symptom-free at this time. He does have history of amyloidosis. 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 Pertinent findings: WBC 7.3 hemoglobin 17.2 INR 1.3 troponin 0.016 BNP 1100 Independently reviewed EKG EKG atrial fibrillation rate 88 ST pattern noted but unchanged from November 10, 2023 Imaging studies independently reviewed: Chest x-ray no acute finding Consultations: 11:[address] Jang, abrasive wheel molder, recommends patient have a treadmill nuclear stress test and echocardiogram, admit patient. Treatments: None indicated at this time Re-evaluations: 11:20 a.m.. Updated patient results. Awaiting call back from cardiology services for consult for disposition. Remains chest pain-free 11:40 a.m.. Spoke with patient my discussion with cardiology services recommending admission for stress test and echocardiogram. He is currently chest pain-free awake alert oriented x4. He does not want to be admitted or get stress test. Implored with him to stay. His friend is at bedside. He does understand risk of leaving against medical advice includes but not limited to heart attack permanent injury loss of limb life organ tissue permanent injury worsening symptoms. Discussion: Patient has decided to leave against medical advice after my discussion with cardiology services to have him admitted and have stress test. Diagnosis: Chest pain/leaving against medical advice Discharge Plan Departure Patient Disposition: Left Against Medical Advice Clinical Impression: Chest pain, Left against medical advice Instructions: Refusal of Consent to Treatment (Against Medical Advice) Activity Restrictions/Additional Instructions: Return immediately if you change your mind to be admitted for stress test Prescriptions: No Action Eliquis 5 mg Tablet 5 mg PO BID Vyndamax 61 mg Capsule 61 mg PO DAILY cyclobenzaprine 10 mg tablet 10 mg PO TID PRN (Reason: muscle spasm) Qty: 14 0RF Referrals: Dasha Lyman MD [Primary Care Provider] - Stand Alone Forms: Patient Portal/API, Against Medical Advice
[2023-11-30 10:05] LABS: Add Manual Diff / Slide Review NO; Basophils Absolute Auto 100 /uL (0-100); Basophils Percent Auto 0.9 % (0-2); Eosinophils Absolute Auto 300 /uL (0-450); Eosinophils Percent Auto 4.6 % (2-4); Hematocrit 49.4 % (41-53); Hemoglobin 17.2 g/dL (13.5-17.5); Lymphocytes Absolute Auto 1300 /uL (1100-4500); Lymphocytes Percent Auto 18.3 % (25-40); Mean Corpuscular HGB Conc 34.7 % (30-36); Mean Corpuscular Hemoglobin 35.3 PG (26-34); Mean Corpuscular Volume 101.6 fL (80-100); Monocytes Absolute Auto 900 /uL (0-900); Monocytes Percent Auto 12.2 % (3-14); Neutrophils Absolute Auto 4700 /uL (1500-7000); Platelet Count 198 X10^3/uL (150-400); Red Blood Cell Count 4.87 X10^6/uL (4.5-5.9); Red Cell Distribution Width 14.2 % (11.6-14.8); White Blood Cell Count 7.3 X10^3/uL (4.5-11.0)
[2023-11-30 10:16] LABS: INR 1.3 (0.9-1.3); Prothrombin Time 14.4 SECONDS (9.4-12.5)
[2023-11-30 10:19] LABS: PTT Partial Thromboplastin Tim 39 SECONDS (25.1-36.5)
[2023-11-30 10:23] LABS: Alanine Aminotransferase 16 IU/L (<50); Albumin 4.5 g/dL (3.5-5.0); Albumin Globulin Ratio 1.2 (1.0-2.8); Alkaline Phosphatase 86 U/L (38-126); Aspartate Aminotransferase 28 IU/L (17-59); BUN Creatinine Ratio 21.1 (6-22); Bilirubin Total 0.9 mg/dL (0.2-1.3); Blood Urea Nitrogen 19 mg/dL (9-20); Calcium 9.4 mg/dL (8.4-10.2); Carbon Dioxide 28 mmol/L (22-32); Chloride 101 mmol/L (98-107); Creatine Kinase 42 U/L (55-170); Estimated Glomerular Filt Rate > 60 mL/min (>60); Globulin 3.9 g/dL (1.7-4.1); Glucose 103 mg/dL (80-110); HEMOLYSIS < 15 (0-50); Lipase 126 U/L (23-300); Magnesium 2.2 mg/dL (1.6-2.3); Potassium 3.8 mmol/L (3.4-5.1); Sodium 136 mmol/L (137-145); Total Protein 8.4 g/dL (6.3-8.2)
[2023-11-30 10:35] LABS: NT-proBNP (BNP-Adult 18+) 1100 pg/mL (<450); Troponin I 0.016 ng/mL (0.01-0.034)
== END 2023-11-30 11:58 | disposition left against medical advice (07) ==
PROVIDERS: Emergency Provider Emergency Medicine; PCP Internal Medicine
DX: R07.9 Chest pain, unspecified (principal); Z53.29 Procedure and treatment not carried out because of patient's decision for other reasons; Z86.79 Personal history of other diseases of the circulatory system; Z79.01 Long term (current) use of anticoagulants
CPT/HCPCS: 36415; 71045; 80053; 82550; 83690; 83735; 83880; 84484; 85025; 85610; 85730; 93005; 99284

== ENCOUNTER 2024-06-10 07:00 | Emergency (ER) | payer MEDICARE, SELFPAY ==
[2024-06-10 07:12] VITALS: BP 136/83; PULSE 84; RESP 16; TEMP 36.5; O2SAT 99; BMI 23.2
--- NOTE | 2024-06-10 07:14 | DI.CT.S_ITS ---
PROCEDURE: CT HEAD/BRAIN WO CON INDICATIONS: head injury TECHNIQUE: Noncontrast 4.5 mm thick angled axial sections acquired from the foramen magnum to the vertex, with coronal and sagittal reformats. For radiation dose reduction, the following was used: automated exposure control, adjustment of mA and/or kV according to patient size. COMPARISON: [facility], CT, CT HEAD/BRAIN WO CON, 05/29/2020, 16:30. FINDINGS: Image quality: Diagnostic. CSF spaces: Basal cisterns are patent. No extra-axial fluid collections. The ventricles are symmetric in size and shape. Brain: No intracranial bleeds or masses. There is cerebral volume loss for age, with resultant ventricular and sulcal prominence. There are periventricular and deep white matter chronic small vessel ischemic changes. There is intracranial internal carotid artery atherosclerosis. Skull and face: Soft tissue lacerations along the frontal bone. Calvarium and visualized facial bones appear intact, without suspicious lesions. Sinuses: Visualized sinuses and mastoids are clear. IMPRESSION: No acute intracranial pathology. Findings are concordant with the preliminary report. Dictated by: Hi Lind M.D. on 06/10/2024 at 8:02 Approved by: Hi Lind M.D. on 06/10/2024 at 8:05
[2024-06-10 07:34] VITALS: PULSE 75; O2SAT 97
[2024-06-10 08:00] VITALS: PULSE 77; O2SAT 96
--- NOTE | 2024-06-10 08:00 | ED.WOUNDLAC ---
HPI - Wound/Laceration General Chief Complaint: Wound/Laceration Stated Complaint: Injured head last night, bleeding won't stop Time Seen by Provider: 06/10/24 07:14 History of Present Illness HPI narrative: 84-year-old male on Eliquis chronic anticoagulation, was working at home yesterday morning more than 24 hours ago, when he bumped the top of his head on overhead piece of metal, sustaining a cut, he did try to come in for repair overnight but it was too busy and he decided to go home, he came back because of the wound continues to intermittently bleed, interested in closure. Unclear time of last tetanus. No loss of consciousness. No nausea or vomiting. No focal weakness to face arm or leg. No focal numbness to face arm or leg. Denies neck pain. Denies facial injuries. Related Data Home Medications Medication Instructions Recorded Confirmed apixaban 5 mg tablet (Eliquis) 5 mg PO BID 05/29/20 05/29/20 tafamidis 61 mg capsule (Vyndamax) 61 mg PO DAILY 05/29/20 05/29/20 Previous Rx's Medication Instructions Recorded cyclobenzaprine 10 mg tablet 10 mg PO TID PRN muscle spasm #14 05/29/20 tabs cephalexin 500 mg capsule 500 mg PO QID 7 days #28 caps 06/10/24 Allergies Allergy/AdvReac Type Severity Reaction Status Date / Time No Known Drug Allergies Allergy Verified 10/19/22 14:24 Patient History Medical History Amyloidosis Social History Smoking Status: Never smoker Smoking Status: Never smoker alcohol intake frequency: 0-2 drinks per day Exam Narrative Exam Narrative: GENERAL: Well-developed patient, in mild distress. HEAD: 3 cm laceration long axis vertex scalp, no active bleeding but recently bled, no obvious visible or palpable foreign body. No crepitance. EYES: Pupils equal round and reactive. Extraocular motions intact. No scleral icterus. No injection or drainage. ENT: Nose without bleeding, purulent drainage. Throat without erythema, tonsillar hypertrophy or exudate. Airway patent. NECK: Trachea midline. Non tender CARDIOVASCULAR: Regular rate and rhythm without murmurs, gallops, or rubs. RESPIRATORY: Clear to auscultation. Breath sounds equal bilaterally. No wheezes, rales, or rhonchi. GASTROINTESTINAL: Abdomen soft, non-tender, nondistended. EXTREMITIES: No edema or joint tenderness. BACK: Nontender without deformity or crepitance. No flank tenderness. NEURO: AOx3. Motor functions grossly nonfocal SKIN: No rash or erythema of visible areas Initial Vital Signs Initial Vital Signs: Vital Signs Temperature 97.7 F 06/10/24 07:12 Pulse Rate 84 06/10/24 07:12 Respiratory Rate 16 06/10/24 07:12 Blood Pressure 136/83 06/10/24 07:12 Pulse Oximetry 99 06/10/24 07:12 Oxygen Delivery Method Room Air 06/10/24 07:12 Procedures Laceration Repair Laceration 1: Time of procedure: 09:51 Site: scalp Size (cm): 3 Description: linear Depth: simple, single layer Local Anesthetic: lidocaine 1% and with epi Amount of anesthesia used (mL): 5 Pre-repair: irrigated extensively (After local injection with xylocaine/epinephrine, 750 cc saline irrigation by nursing.) Skin layer closed with: ambrose Number of sutures: 6 Course Orders Ordered: Discontinued Medications Cephalexin HCl (Cephalexin 250 Mg Capsule) 500 mg PO NOW ONE Stop: 06/10/24 09:09 Last Admin: 06/10/24 09:19 Dose: 500 mg Documented By: BERNARDO Diphtheria/Tetanus/Acell Pertussis (Tet,Diph,Pertuss(Acell),Vac/Pf 0.5 Ml Syringe) 0.5 ml IM .ONCE ONE Stop: 06/10/24 08:52 Last Admin: 06/10/24 09:18 Dose: 0.5 ml Documented By: BERNARDO Vital Signs Vital signs: Vital Signs - 8 hr 06/10/24 07:12 06/10/24 07:34 06/10/24 08:00 Temperature 97.7 F Pulse Rate 84 75 77 Respiratory Rate 16 Blood Pressure 136/83 Pulse Oximetry 99 97 96 Oxygen Delivery Method Room Air 06/10/24 08:30 06/10/24 09:00 06/10/24 09:30 Temperature Pulse Rate 70 64 71 Respiratory Rate Blood Pressure Pulse Oximetry 96 98 98 Oxygen Delivery Method MDM - Wound/Laceration Imaging Data CT scan - head: Radiologist's Impression: [address] [place] [address] CT Scan Report Signed Patient: Yony Bernstein MR#: [id number] : 1940 Acct:[id number] Age/Sex: 84 / M Date of Service: 06/10/24 Loc: ED Accession Number: [id number] Procedure: CT head/brain wo con Ordering Provider: Kameron Marino MD PROCEDURE: CT HEAD/BRAIN WO CON INDICATIONS: head injury TECHNIQUE: Noncontrast 4.5 mm thick angled axial sections acquired from the foramen magnum to the vertex, with coronal and sagittal reformats. For radiation dose reduction, the following was used: automated exposure control, adjustment of mA and/or kV according to patient size. COMPARISON: [facility], CT, CT HEAD/BRAIN WO CON, 05/29/2020, 16:30. FINDINGS: Image quality: Diagnostic. CSF spaces: Basal cisterns are patent. No extra-axial fluid collections. The ventricles are symmetric in size and shape. Brain: No intracranial bleeds or masses. There is cerebral volume loss for age, with resultant ventricular and sulcal prominence. There are periventricular and deep white matter chronic small vessel ischemic changes. There is intracranial internal carotid artery atherosclerosis. Skull and face: Soft tissue lacerations along the frontal bone. Calvarium and visualized facial bones appear intact, without suspicious lesions. Sinuses: Visualized sinuses and mastoids are clear. IMPRESSION: No acute intracranial pathology. Findings are concordant with the preliminary report. Dictated by: Hi Lind M.D. on 06/10/2024 at 8:02 Approved by: Hi Lind M.D. on 06/10/2024 at 8:05 [facility] Narrative Medical decision making narrative: 84-year-old male with chronic Eliquis anticoagulation had linear laceration 26 hours ago at his home garage, vertex laceration long access 3 cm, oozing, nonpulsatile. No loss of consciousness or nausea or vomiting. CT head ordered from triage was negative for intracranial injuries, no scalp fractures or foreign bodies mentioned. We discussed length of time since injury, increased risk of wound infection, however he is having continued bleeding in context of chronic anticoagulation. We will primarily close. Local injection with lidocaine/epinephrine, irrigated by nursing 750 cc normal saline, then primary closure with ambrose. See procedure note. Antibiotic cephalexin given in the emergency department, prescription sent to his requested pharmacy. Advised to take antibiotics as directed. Tetanus updated. Wound check advised in the next couple of days with his regular doctor, or urgent care, or here in the emergency department Discharge Plan Departure Patient Disposition: Home Clinical Impression: Laceration of scalp, Chronic anticoagulation Instructions: DI for Laceration Repair Activity Restrictions/Additional Instructions: Scalp laceration yesterday morning over 24 hours ago, apparently was quite busy overnight when you tried to be seen, presenting again, still having some bleeding from the scalp wound, chronic blood thinning anticoagulation from Eliquis noted. CT head showed no brain injuries, no bony fractures. Usually we do not try to close the wound when his this many hours old, however it is continuing to ooze, and at increased risk of continuing to bleed given your anticoagulation. We injected and copiously irrigated the wound. We closed the wound with ambrose. To help prevent infection we gave dose of cephalexin antibiotic, and prescription for further antibiotics sent to your pharmacy. Consider wound check in the next 2-3 days with your regular doctor, or in urgent care clinic, or here in the emergency department if you can not make other arrangements. Return to this/nearest emergency department for any change worsening symptoms or any concerns prior. Tetanus update was also given while in the emergency department. Thank you for allowing our team to take care of you today. Prescriptions: New cephalexin 500 mg capsule 500 mg PO QID 7 Days Qty: 28 0RF No Action Eliquis 5 mg Tablet 5 mg PO BID Vyndamax 61 mg Capsule 61 mg PO DAILY cyclobenzaprine 10 mg tablet 10 mg PO TID PRN (Reason: muscle spasm) Qty: 14 0RF Referrals: Dasha Lyman MD [Primary Care Provider] - Stand Alone Forms: Patient Portal/API/Survey
--- NOTE | 2024-06-10 08:16 | PC.NURSE ---
Pt reports walking into sharp edge of garage last night. States bleeding has not been controlled throughout the night. Pt unsure when last tetanus show was but thinks it was within the past 10 years. Pt reports initial pain at site of laceration but otherwise denies head pain. Denies LOC. States he is on eloquis; reports he lives at home alone
[2024-06-10 08:30] VITALS: PULSE 70; O2SAT 96
[2024-06-10 09:00] VITALS: PULSE 64; O2SAT 98
[2024-06-10] MEDS: TET,DIPH,PERTUSS(ACELL),VAC/PF 0.5 ML SYRINGE IM (09:18)
[2024-06-10] MEDS: cephALEXin 250 MG CAPSULE 500 MG PO (09:19)
[2024-06-10 09:30] VITALS: PULSE 71; O2SAT 98
== END 2024-06-10 09:52 | disposition home or self-care (01) ==
PROVIDERS: Emergency Provider Emergency Medicine; PCP Internal Medicine
DX: S01.01XA Laceration without foreign body of scalp, initial encounter (principal); W26.9XXA Contact with unspecified sharp object(s), initial encounter; Z79.01 Long term (current) use of anticoagulants; Z23 Encounter for immunization
CPT/HCPCS: 12002; 70450; 90471; 99284; 90715

== ENCOUNTER 2024-06-15 06:49 | Emergency (ER) | payer MEDICARE, SELFPAY ==
[2024-06-15 06:54] VITALS: BP 143/67; PULSE 79; RESP 16; TEMP 36.3; O2SAT 97; BMI 22.6
--- NOTE | 2024-06-15 07:21 | ED_ITS ---
HPI - Wound/Laceration General Chief Complaint: Wound/Laceration Stated Complaint: Needs ambrose removed Time Seen by Provider: 06/15/24 07:21 Source: patient Mode of arrival: Ambulatory History of Present Illness HPI narrative: 84-year-old gentleman here for staple removal had 60 ambrose placed last Tuesday whereby he had a head injury hitting his head in his garage while attending to his cars that he had stacked vertically. He has no complaints at this time no headache no dizziness no blurred vision no neck pain no fever chills no bleeding discharge. Other than what is stated 14 point review of system is negative Onset (ago): day(s) Place: home Context: accidental Related Data Home Medications Medication Instructions Recorded Confirmed apixaban 5 mg tablet (Eliquis) 5 mg PO BID 05/29/20 06/15/24 tafamidis 61 mg capsule (Vyndamax) 61 mg PO DAILY 05/29/20 06/15/24 Previous Rx's Medication Instructions Recorded cyclobenzaprine 10 mg tablet 10 mg PO TID PRN muscle spasm #14 05/29/20 tabs cephalexin 500 mg capsule 500 mg PO QID 7 days #28 caps 06/10/24 Allergies Allergy/AdvReac Type Severity Reaction Status Date / Time No Known Drug Allergies Allergy Verified 10/19/22 14:24 Review of Systems Review of Systems ROS Unobtainable: All systems reviewed & are unremarkable except as noted in HPI and below Patient History Medical History Amyloidosis Social History Smoking Status: Former smoker Smoking Status: Former smoker alcohol intake frequency: 0-2 drinks per day Exam Narrative Exam Narrative: GENERAL: [84] year old patient appears stated age. Well-developed patient, in mild distress. HEAD: Atraumatic. Normocephalic. EYES: Pupils equal round and reactive. Extraocular motions intact. No scleral icterus. No injection or drainage. NECK: Trachea midline. Non tender EXTREMITIES: No edema or joint tenderness. BACK: Nontender without deformity or crepitance. No flank tenderness. NEURO: AOx3. SKIN: No rash or erythema of visible areas Scalp: Vertical laceration superficial ambrose intact, no wound dehiscience, no bleeding, drainage, redness or warmth Initial Vital Signs Initial Vital Signs: Vital Signs Temperature 97.3 F L 06/15/24 06:54 Pulse Rate 79 06/15/24 06:54 Respiratory Rate 16 06/15/24 06:54 Blood Pressure 143/67 H 06/15/24 06:54 Pulse Oximetry 97 06/15/24 06:54 Oxygen Delivery Method Room Air 06/15/24 06:[address] [facility] Procedure Name of Procedure: Ambrose removed 6 ambrose. Pt tolerated procedure w/o any complications. No bleeding, discharge, warmth, redness, or warmth. Course Vital Signs Vital signs: Vital Signs - 8 hr 06/15/24 06:54 Temperature 97.3 F L Pulse Rate 79 Respiratory Rate 16 Blood Pressure 143/67 H Pulse Oximetry 97 Oxygen Delivery Method Room Air MDM - Wound/Laceration MDM Narrative Medical decision making narrative: Six ambrose were removed, patient tolerated procedure without any complications. No bleeding, redness, warmth, or discharge. Differential diagnosis includes staple removal, foreign body, cellulitis, tetanus. Return with new or worsening symptoms Discharge Plan Departure Patient Disposition: Home Clinical Impression: Encounter for removal of ambrose Prescriptions: No Action Eliquis 5 mg Tablet 5 mg PO BID Vyndamax 61 mg Capsule 61 mg PO DAILY cyclobenzaprine 10 mg tablet 10 mg PO TID PRN (Reason: muscle spasm) Qty: 14 0RF cephalexin 500 mg capsule 500 mg PO QID 7 Days Qty: 28 0RF Referrals: Dasha Lyman MD [Primary Care Provider] - Stand Alone Forms: Patient Portal/API/Survey
== END 2024-06-15 07:37 | disposition home or self-care (01) ==
PROVIDERS: Emergency Provider Family Medicine; PCP Internal Medicine
DX: Z48.1 Encounter for planned postprocedural wound closure (principal)
CPT/HCPCS: 99282

== ENCOUNTER → 2024-11-26 10:47 | Outpatient (CLI) | payer MEDICARE, SELFPAY ==
[2024-11-26 11:29] LABS: Add Manual Diff / Slide Review NO; Hematocrit 42.0 % (41-53); Hemoglobin 14.5 g/dL (13.5-17.5); Lymphocytes Absolute Auto 700 /uL (1100-4500); Mean Corpuscular HGB Conc 34.4 % (30-36); Mean Corpuscular Hemoglobin 36.3 PG (26-34); Mean Corpuscular Volume 105.5 fL (80-100); Platelet Count 212 X10^3/uL (150-400)
[2024-11-26 11:59] LABS: HEMOLYSIS < 15 (0-50); Iron 91 ug/dL (49-181)
[2024-11-26 12:10] LABS: Percent Iron Saturation 34 % (20-50); Total Iron Binding Capacity 271 ug/dL (261-462); Transferrin 209 mg/dL (206-381)
[2024-11-26 12:37] LABS: Ferritin 40 ng/mL (18-464)
== END ==
PROVIDERS: PCP Internal Medicine; Referring Provider Internal Medicine; Visit Provider Psychiatry & Neurology Neurology
DX: E83.119 Hemochromatosis, unspecified (principal); G62.9 Polyneuropathy, unspecified
CPT/HCPCS: 36415; 82728; 83516; 83540; 83550; 85025; 85651; 86036; 86038; 86140; 86235; 86671